=== PATIENT | female | born 1980 | race Caucasian/White ===

== ENCOUNTER 2021-01-05 14:20 | Outpatient (CLI) | payer OTHER, MEDICAID ==
[2021-01-05] MEDS ORDERED: IBUP-1986 PO (15:24)
[2021-01-05] MEDS ORDERED: GABA300T25 PO (15:24)
[2021-01-05] MEDS ORDERED: NAPR-996 PO (15:24)
[2021-01-05] MEDS ORDERED: HYDR-3972 PO (15:24)
[2021-01-05 16:00] LABS: BASOPHILS # (AUTO) 0.1 X10'3 (0-0.2); BASOPHILS % (AUTO) 0.8 % (0-1); EOSINOPHILS # (AUTO) 0.2 X10'3 (0-0.9); LYMPHOCYTES % (AUTO) 38.7 % (21-51); MEAN CORPUSCULAR HEMOGLOBIN 29.6 PG (27.0-31.0); MEAN CORPUSCULAR HGB CONC 32.9 g/dL (33.0-36.5); MEAN CORPUSCULAR VOLUME 89.9 FL (78-98); MEAN PLATELET VOLUME 9.4 FL (7.4-10.4); MONOCYTES # (AUTO) 0.9 X10'3 (0-0.9); MONOCYTES % (AUTO) 11.2 % (2-12); NEUTROPHILS # (AUTO) 3.7 X10'3 (1.8-7.7); NEUTROPHILS % (AUTO) 47.3 % (42-75); PRE OP HEMATOCRIT 43.2 % (35.0-45.0); PRE OP HEMOGLOBIN 14.2 g/dL (12.0-16.0); PRE OP PLATELET COUNT 284 X10'3 (140-440); RED CELL DISTRIBUTION WIDTH 13.3 % (11.5-14.5)
[2021-01-05 16:17] LABS: ALBUMIN 3.4 G/DL (3.4-5.0); ALBUMIN/GLOBULIN RATIO 1.1 (1.1-1.5); ALKALINE PHOSPHATASE 90 IU/L (46-116); BLOOD UREA NITROGEN 10 MG/DL (7-18); BUN/CREATININE RATIO 14.9 (6.6-38.0); CALCIUM 8.7 MG/DL (8.5-10.1); CHLORIDE 108 MMOL/L (99-107); CREATININE 0.67 MG/DL (0.40-0.90); PRE OP ALT 20 U/L (30-65); PRE OP ANION GAP 7 (8-16); PRE OP AST 21 U/L (10-37); PRE OP BILIRUB, TOTAL 0.2 MG/DL (0.0-1.0); PRE OP GLUCOSE 87 MG/DL (70-104); PRE OP POTASSIUM 4.3 MMOL/L (3.4-5.1); PRE OP SODIUM 144 MMOL/L (135-145); TOTAL PROTEIN 6.5 G/DL (6.4-8.2); eGFR > 90 ML/MIN
== END 2021-01-05 23:59 | disposition home or self-care (01) ==
LOC: PRE-OP 14:20 → EDSTATUS 01-12 13:30
PROVIDERS: ATTEND Orthopaedic Surgery
DX: Z01.812 Encounter for preprocedural laboratory examination (principal); M25.511 Pain in right shoulder; M19.111 Post-traumatic osteoarthritis, right shoulder; Z72.0 Tobacco use; Z20.822 Contact with and (suspected) exposure to COVID-19
CPT/HCPCS: 36415; 80053; 85025; 87635

== ENCOUNTER 2021-07-13 07:01 | Inpatient (IN) | payer OTHER ==
[2021-07-07 12:53] LABS: BASOPHILS # (AUTO) 0.1 X10'3 (0-0.2); BASOPHILS % (AUTO) 0.7 % (0-1); EOSINOPHILS # (AUTO) 0.1 X10'3 (0-0.9); EOSINOPHILS % (AUTO) 1.3 % (0-6); LYMPHOCYTES # (AUTO) 3.1 X10'3 (1.1-4.8); LYMPHOCYTES % (AUTO) 32.5 % (21-51); MEAN CORPUSCULAR HEMOGLOBIN 29.8 PG (27.0-31.0); MEAN CORPUSCULAR VOLUME 90.1 FL (78-98); MEAN PLATELET VOLUME 9.3 FL (7.4-10.4); MONOCYTES % (AUTO) 10.4 % (2-12); NEUTROPHILS # (AUTO) 5.3 X10'3 (1.8-7.7); NEUTROPHILS % (AUTO) 55.1 % (42-75); PRE OP HEMATOCRIT 45.5 % (35.0-45.0); PRE OP PLATELET COUNT 279 X10'3 (140-440); RED BLOOD COUNT 5.05 X10'6 (4.20-5.60); RED CELL DISTRIBUTION WIDTH 13.8 % (11.5-14.5)
[2021-07-07 13:09] LABS: ALBUMIN 3.7 G/DL (3.4-5.0); ALBUMIN/GLOBULIN RATIO 1.1 (1.1-1.5); ALKALINE PHOSPHATASE 103 IU/L (46-116); BLOOD UREA NITROGEN 9 MG/DL (7-18); BUN/CREATININE RATIO 13.8 (6.6-38.0); CALCIUM 8.5 MG/DL (8.5-10.1); CHLORIDE 108 MMOL/L (99-107); CREATININE 0.65 MG/DL (0.40-0.90); PRE OP ALT 21 U/L (30-65); PRE OP ANION GAP 8 (8-16); PRE OP AST 15 U/L (10-37); PRE OP BILIRUB, TOTAL 0.4 MG/DL (0.0-1.0); PRE OP GLUCOSE 86 MG/DL (70-104); PRE OP POTASSIUM 4.7 MMOL/L (3.4-5.1); PRE OP SODIUM 144 MMOL/L (135-145); TOTAL CARBON DIOXIDE 27.7 MMOL/L (24-32); TOTAL PROTEIN 7.1 G/DL (6.4-8.2); eGFR > 90 ML/MIN
[~2021-07-13] VITALS: Ht 170.2 cm; Wt 69.0 kg
[2021-07-13] VITALS (17 sets, daily range): BP systolic 100–127; BP diastolic 56–74
[~2021-07-13 07:01] MED LIST: GABA300C PO; NAPR-996 PO; VANCOMYCIN INJ 1000 MG in NORMAL SALINE 250ml IV.SOLN IV ONE; cefazolin/dext.iso 2gm/100ml IV ONE; famotidine 20mg tablet PO ONE; ringers solution, lacted 1,000 ML IV SCH; tranexamic acid 650mg tablet PO ONE
[2021-07-13] MEDS ORDERED: ketorolac trometh. 30mg/ml inj. ONE (07:49)
[2021-07-13] MEDS ORDERED: ROPIVAcaine 0.5% (5mg/ml) 30ml vial ONE ×2 (07:49→09:31)
[2021-07-13] MEDS ORDERED: MIDAZolam 1 MG/ML 5ML VIAL ONE (08:27)
[2021-07-13] MEDS ORDERED: fentaNYL/PF 50MCG/1 ML 2ML syringe ONE (08:27)
[2021-07-13] MEDS ORDERED: sevoflurane 250ml liquid IH ONE (08:45)
[2021-07-13] MEDS ORDERED: ondansetron/PF 4mg/2ml inj IV PRN ×2 (09:25→12:55)
[2021-07-13] MEDS ORDERED: acetaminophen 1,000mg/100ml IV 100 ML IV PRN (09:25)
[2021-07-13] MEDS ORDERED: hydrALAZINE 20mg/ml inj. IV PRN (09:25)
[2021-07-13] MEDS ORDERED: ROPIVAcaine 0.2%/PF PUMP/bolus 545 ML INTERSCALE SCH (09:25)
[2021-07-13] MEDS ORDERED: labetalol 20mg/4ml (5mg/ml) syringe IV PRN (09:25)
[2021-07-13] MEDS ORDERED: morphine 2 MG/ML inj. syringe IV PRN (09:25)
[2021-07-13] MEDS ORDERED: proCHLORperazine 10 MG/2 ml inj IV PRN (09:25)
[2021-07-13] MEDS ORDERED: ROPIVAcaine 0.2% (10 MG/5 ML) BOLUS INJECTION INTERSCALE PRN (09:25)
[2021-07-13] MEDS ORDERED: ringers solution, lacted 1,000 ML IV SCH (09:25)
[2021-07-13] MEDS ORDERED: meperidine/PF 25mg/ml syringe IV PRN ×3 (09:25)
[2021-07-13] MEDS ORDERED: morphine 4 MG/ML inj SYRINge IV PRN (09:25)
[2021-07-13] MEDS ORDERED: LIDOcaine 1%/PF 5ML 10 MG/ML VIAL ONE (09:31)
[2021-07-13] MEDS ORDERED: rocuronium 10mg/ml inj IV ONE (09:31)
[2021-07-13] MEDS ORDERED: LIDOcaine 2% (20mg/ml) 5ml vial ONE (09:31)
[2021-07-13] MEDS ORDERED: propofol inj 20 ML IV ONE (09:31)
[2021-07-13] MEDS ORDERED: dexamethasone sod phosphate 4mg/ml inj. ONE (09:37)
[2021-07-13] MEDS ORDERED: ondansetron/PF 4mg/2ml inj ONE (09:37)
[2021-07-13] MEDS ORDERED: neostigmine methylsulfate 1 MG/ML 10ml vial ONE (10:56)
[2021-07-13] MEDS ORDERED: glycopyrrolate 0.2mg/ml inj ONE (10:56)
--- NOTE | 2021-07-13 11:06 | NUR ---
Received from OR via BED, accompanied by Anesthesiologist DR GOMEZ and report given by Anesthesiologist AND CARD CHECKER. PT DROWSY, DENIES PAIN, UNABLE TO MOVE RIGHT ARM. RIGHT SWEETIE W/CARYN, POWDER PACK, SHOULDER WRAP AND SLING, CDI. Addendum: 07/13/21 at 1126 by Stephanie Ferrara RN Amended: Links added.
[2021-07-13] MEDS ORDERED: HYDROcodone/acetaminophen 10/325mg tab PO PRN (11:30)
[2021-07-13] MEDS ORDERED: gabapentin 300mg capsule PO PRN (11:30)
[2021-07-13] MEDS ORDERED: naproxen 500mg tablet PO PRN (11:30)
[2021-07-13] MEDS ORDERED: oxyCODONE IR 5mg (immed. release) tablet PO PRN (12:55)
[2021-07-13] MEDS ORDERED: bisacodyl 10mg suppository rectal RC PRN (12:55)
[2021-07-13] MEDS ORDERED: HYDROmorphone inj. 0.5 MG/0.5 ML DISP.SYRIN IV PRN (12:55)
[2021-07-13] MEDS ORDERED: diphenhydrAMINE 25mg capsule PO PRN ×2 (12:55)
[2021-07-13] MEDS: potassium cl 20mEq in 1/2 NS 1,000 ML IV SCH ×2 (12:55→20:00)
[2021-07-13] MEDS ORDERED: HYDROmorphone 1 mg/ml syringe IV PRN (12:55)
[2021-07-13] MEDS ORDERED: acetaminophen 325mg tablet PO PRN (12:55)
[2021-07-13] MEDS ORDERED: magnesium hydroxide 30ml (MOM) UD suspension PO PRN (12:55)
--- NOTE | 2021-07-13 13:00 | NUR ---
Patient in room PAS IN 901. I have received report from Stephanie ESTEBANlinter tender and had the opportunity to ask questions and assume patient care.
--- NOTE | 2021-07-13 13:40 | NUR ---
PTS LEFT PUPIL IS APPROX 2 TIMES LARGER THAN THE RIGHT, NO DEFICITS NOTED, PT STATES SHE FEELS FINE AND DOESN'T NOTE ANY CHANGES IN VISION, STRENGTH, OR ANYTHING ELSE, CALLED AND UPDATED DR GOMEZ WHO FEELS IT IS HORNERS SIGN. HE WILL FOLLOW UP W/PT. 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 BLL, CALL LIGHT GIVEN, SIDE RAILS UP X 2. PT UP TO BATHROOM FOR VOID AND RETURN TO BED, STEADY ON FEET. RECEIVING RN NOTIFIED OF PTS ARRIVAL. Addendum: 07/13/21 at 1441 by Stephanie Ferrara RN Amended: Links added.
[2021-07-13] MEDS: acetaminophen 325mg tablet PO SCH ×2 (14:55→20:04)
[2021-07-13] MEDS ORDERED: ceFAZolin/D5W- 1GM premix 50 ML IV SCH (16:00)
[2021-07-13] MEDS: ceFAZolin/D5W- 1GM premix 50 ML IV SCH (16:11)
--- NOTE | 2021-07-13 18:40 | NUR ---
Problems reprioritized. Patient report given, questions answered & plan of care reviewed with Sylvia ESTEBAN ortho nurse.
[2021-07-13] MEDS ORDERED: vancomycin/NS 1 GM ADD-VANTAGE 250 ML IV SCH (20:00)
[2021-07-13] MEDS ORDERED: sennosides 8.6mg tablet PO SCH (21:00)
[2021-07-14] VITALS: BP 109/72
[2021-07-14] MEDS: ceFAZolin/D5W- 1GM premix 50 ML IV SCH (00:13)
[2021-07-14] MEDS: acetaminophen 325mg tablet PO SCH ×2 (02:25→09:03)
[2021-07-14] MEDS: oxyCODONE IR 5mg (immed. release) tablet PO PRN ×2 (03:47→09:02)
[2021-07-14] MEDS: potassium cl 20mEq in 1/2 NS 1,000 ML IV SCH (03:49)
[2021-07-14 04:00] VITALS: BP 123/64
[2021-07-14 07:00] VITALS: BP 129/73
[2021-07-14] MEDS ORDERED: aspirin 325mg tablet PO SCH (08:30)
[2021-07-15] MEDS ORDERED: acetaminophen 325mg tablet PO PRN (12:55)
== END 2021-07-14 11:18 | disposition home or self-care (01) | DRG 483 ==
LOC: UNDOADMIN 07:01 → PAS IN 07:01 → SUR 3N 13:24 → PAS IN 13:24
PROVIDERS: ADMIT Orthopaedic Surgery; ATTEND Orthopaedic Surgery
PROC: 0LS30ZZ Reposition Right Upper Arm Tendon, Open Approach (ICD-10-PCS; 2021-07-13)
PROC: 3E0T3BZ Introduction of Anesthetic Agent into Peripheral Nerves and Plexi, Percutaneous Approach (ICD-10-PCS; 2021-07-13)
PROC: 3E0T33Z Introduction of Anti-inflammatory into Peripheral Nerves and Plexi, Percutaneous Approach (ICD-10-PCS; 2021-07-13)
PROC: 0RRJ0JZ Replacement of Right Shoulder Joint with Synthetic Substitute, Open Approach (ICD-10-PCS; principal; 2021-07-13 08:45)
DX: M19.111 Post-traumatic osteoarthritis, right shoulder (principal); M75.21 Bicipital tendinitis, right shoulder; G89.29 Other chronic pain; F17.210 Nicotine dependence, cigarettes, uncomplicated; M65.811 Other synovitis and tenosynovitis, right shoulder; Z90.710 Acquired absence of both cervix and uterus; Z98.51 Tubal ligation status
CPT/HCPCS: Z7506; Z7508; 36415; 80053; 82948; 85025; 87081; 97161; 97530; A4565; A4618; A7000; C1713; C1776; G0378; J0690; J1100; J1885; J2001; J2250; J2405; J2704; J2710; J2795; J3010; J3370; J3480; J3490; J7120; U0003; U0005